=== PATIENT | female | born 1975 | race American Indian/Alaskan Native ===

== ENCOUNTER 2018-03-03 22:44 | Emergency (ER) | payer BC, MEDICAID ==
[2018-03-03 22:44] VITALS: BMI 69.7
--- NOTE | 2018-03-04 01:07 | ED PDOC ---
Upper Extremity Pain/Injury Time Seen by Provider: 03/04/18 00:18 Chief Complaint (Nursing): Upper Extremity Problem/Injury Chief Complaint (Provider): Upper Extremity Problem/Injury History Per: Patient History/Exam Limitations: no limitations Onset/Duration Of Symptoms: Days (x3 weeks) Exacerbating Factor(s): Strenuous Use Of Affected Area, Movement Additional Complaint(s): 42 y/o female with history of obesity and breast reduction surgery presents to the ED with left shoulder pain for the past x3 weeks. Patient reports the pain is worsened with movement and worse with lifting. She states symptoms started when she was in [place] but does not recall trauma. Patient reports the pain is worse in the front of her shoulder. Past Medical History Reviewed: Historical Data, Nursing Documentation, Vital Signs Vital Signs: Last Vital Signs Temp 98.2 F 03/03/18 23:11 Pulse 84 03/03/18 23:11 Resp 18 03/03/18 23:11 BP 124/78 03/03/18 23:11 Pulse Ox 99 03/03/18 23:11 - Medical History PMH: Sleep Apnea (USES CPAP) Denies: Chronic Kidney Disease Other PMH: Obesity - Surgical History Surgical History: Denies: Pacemaker Other surgeries: Breast reduction surgery - Family History Family History: States: Unknown Family Hx - Home Medications Home Medications: Ambulatory Orders Medication Instructions Recorded Cyclobenzaprine HCl [Flexeril] 10 mg PO PRN PRN 06/17/14 Ergocalciferol (Vitamin D2) 50,000 iu PO TUE 06/17/14 [Vitamin D] Iron,Carbonyl [Feosol] 23 mg PO BID 06/17/14 Metoprolol Tartrate [Lopressor] 50 mg PO BID 06/17/14 Naproxen 500 mg PO PRN PRN 06/17/14 Vitamin B Complex 1 tab PO DAILY 06/17/14 Metoprolol Tartrate [Lopressor] 50 mg PO BID 08/31/14 Lansoprazole [Prevacid] 20 mg PO DAILY 10/01/14 Tramadol Hydrochloride [Tramadol] 1 tab PO PRN PRN 10/01/14 Oxycodone HCl/Acetaminophen 1 tab PO Q4 #20 tab 10/14/14 [Percocet 325 mg-5 mg] Cyclobenzaprine [Cyclobenzaprine 10 mg PO BID #15 tab 03/04/18 HCl] Naproxen [Naprosyn] 500 mg PO BID #30 tablet 03/04/18 Sod Phos,M-B/Na Phos,Di-Ba [Fleet 133 ml RC DAILY #5 enema 03/04/18 Enema] - Allergies Allergies/Adverse Reactions: Allergies Allergy/AdvReac Type Severity Reaction Status Date / Time meperidine [From Demerol] Allergy ANAPHYLAXIS Verified 03/03/18 23:11 Penicillins Allergy RASH Verified 03/03/18 23:11 Review of Systems ROS Statement: Except As Marked, All Systems Reviewed And Found Negative Musculoskeletal: Positive for: Shoulder Pain (left) Physical Exam - Reviewed Nursing Documentation Reviewed: Yes Vital Signs Reviewed: Yes - Physical Exam Appears: Positive for: Well, Non-toxic, No Acute Distress Head Exam: Positive for: ATRAUMATIC, NORMOCEPHALIC Skin: Positive for: Normal Color, Warm, DRY Eye Exam: Positive for: EOMI, Normal appearance, PERRL Extremity: Positive for: Tenderness (left anterior deltoid), Other (distal neurovascular is intact; strenght is 5/5; no redness). Negative for: Normal ROM (difficulty reasing arm above head secondary to pain), Deformity, Swelling Neurologic/Psych: Positive for: Alert, Oriented. Negative for: Motor/Sensory Deficits - ECG O2 Sat by Pulse Oximetry: 99 (RA) Pulse Ox Interpretation: Normal Medical Decision Making Medical Decision Making: Time: 00:26 A/P: Muscle strain vs rotator cuff injury * Flexeril 10 mg * Motrin 600 mg * RAD Shoulder 315 Shoulder shows degenerative changes of the bone Will recommends NSAIDs, ice, rest Followup with ortho given Scribe Attestation: Documented by Ascencion Culver acting as a scribe for Bright Chung MD. Provider Scribe Attestation: All medical record entries made by the Scribe were at my direction and personally dictated by me. I have reviewed the chart and agree that the record accurately reflects my personal performance of the history, physical exam, medical decision making, and the department course for this patient. I have also personally directed, reviewed, and agree with the discharge instructions and disposition. Disposition - Clinical Impression Clinical Impression: Degenerative joint disease - Patient ED Disposition Is Patient to be Admitted: No - Disposition Referrals: Richar Buchanan MD [Medical Doctor] - Disposition: Routine/Home Disposition Time: 03:34 Condition: STABLE Prescriptions: Cyclobenzaprine [Cyclobenzaprine HCl] 10 mg PO BID #15 tab Naproxen [Naprosyn] 500 mg PO BID #30 tablet Sod Phos,M-B/Na Phos,Di-Ba [Fleet Enema] 133 ml RC DAILY #5 enema Instructions: Osteoarthritis (DC) Forms: [facility] ([place])
[2018-03-04 02:46] VITALS: BP 122/69; PULSE 72; RESP 19; TEMP 97.8
[2018-03-04 03:35] VITALS: O2SAT 99
--- NOTE | 2018-03-04 08:29 | RAD ---
Date of service: 03/04/2018 PROCEDURE: Radiographs of the Left Shoulder HISTORY: shoulder pain COMPARISON: No prior. FINDINGS: BONES: No acute fracture or destructive bony lesion identified. JOINTS: Advanced osteoarthritis is appreciate the glenohumeral and acromioclavicular joints were prominent osteophyte development is noted as well as articular cortical sclerosis. SOFT TISSUES: Normal. OTHER FINDINGS: None. IMPRESSION: No acute fracture or dislocation left shoulder. Advanced degenerative joint disease the left glenohumeral and acromioclavicular joints.
== END 2018-03-04 03:51 | disposition home or self-care (01) ==
LOC: H.ER 22:44
DX: M19.012 Primary osteoarthritis, left shoulder (principal); E66.9 Obesity, unspecified